=== PATIENT | female | born 1955 | race African-American/Black ===

== ENCOUNTER 2016-11-30 01:35 | Inpatient (IN) | payer BC ==
[~2016-11-30] VITALS: Ht 165.1 cm; Wt 74.0 kg
[2016-11-30] VITALS (8 sets, daily range): BP systolic 125–147; BP diastolic 67–92
[2016-11-30 02:26] LABS: BASOPHILS % 1.2 % (0.0-2.0); EOSINOPHILS % 2.4 % (0.0-5.0); HEMOGLOBIN. 12.5 g/dL (12.0-16.0); LYMPHOCYTES % 47.4 % (20.0-50.0); MEAN CORPUSCULAR HEMOGLOBIN 31.4 pg (28.0-32.0); MEAN CORPUSCULAR VOLUME 92.9 fL (81.0-99.0); MEAN PLATELET VOLUME 8.1 fl (7.4-10.4); MONOCYTES % 6.5 % (2.0-8.0); NEUTROPHILS % 42.5 % (40.0-76.0); PLATELET 189 x1000/uL (130-400); RED BLOOD CELL COUNT 3.98 mill/uL (4.2-5.4); RED CELL DISTRIBUTION WIDTH 12.7 % (11.6-14.6)
[2016-11-30 02:28] LABS: CHLORIDE 105 mEq/L (98-107)
[2016-11-30 02:29] LABS: PROTHROMBIN TIME 10.7 sec (9.4-11.6)
[2016-11-30 02:37] LABS: CARBON DIOXIDE 27 mEq/L (21-32)
[2016-11-30] MEDS ORDERED: SODIUM CHLORIDE 0.9% 1,000 ML IV SCH (02:54)
[2016-11-30] MEDS ORDERED: ASPIRIN 325MG TABLET PO ONE (03:00)
[2016-11-30] MEDS ORDERED: MORPHINE SULFATE 4 MG/ML CPJ (NOT FOR IM USE) IV PRN (06:45)
[2016-11-30] MEDS ORDERED: DOCUSATE SODIUM 100MG CAPSULE PO PRN (06:45)
[2016-11-30] MEDS ORDERED: ACETAMINOPHEN 325MG TABLET PO PRN (06:45)
[2016-11-30] MEDS ORDERED: TRAMADOL 50MG TABLET PO PRN (06:45)
[2016-11-30] MEDS ORDERED: IPRATROPIUM/ALBUTEROL 0.5-3(2.5)MG/3ML NEB INH PRN (06:45)
[2016-11-30] MEDS ORDERED: MAGNESIUM/ALUMINUM HYDROXIDE/SIMETHICONE 30ML UDC PO PRN (06:45)
[2016-11-30] MEDS ORDERED: ONDANSETRON HCL 4MG/2ML VIAL IV PRN (06:45)
[2016-11-30] MEDS ORDERED: CLONIDINE 0.1MG TABLET PO PRN (06:45)
[2016-11-30] MEDS ORDERED: NITROGLYCERIN 0.4MG TABLET SL SL PRN (06:45)
[2016-11-30] MEDS ORDERED: DIPHENHYDRAMINE 50MG/ML VIAL IV PRN (06:45)
[2016-11-30] MEDS ORDERED: GUAIFENESIN 200MG/10ML SUGAR FREE UDC PO PRN (06:45)
[2016-11-30] MEDS ORDERED: NA PHOS,M-B/NA PHOS,DI-BA ENEMA 118ML PR PRN (06:45)
[2016-11-30] MEDS ORDERED: ZOLPIDEM TARTRATE 5MG TABLET PO PRN (06:45)
[2016-11-30] MEDS: ASPIRIN 325MG EC TABLET PO SCH (11:04)
[2016-11-30] MEDS: FAMOTIDINE 20MG/2ML VIAL IV SCH ×2 (11:04→20:32)
[2016-11-30] MEDS: ENOXAPARIN 40MG/0.4ML SYR SUBCUT SCH (11:05)
[2016-11-30 15:53] LABS: CREATINE KINASE 74 IU/L (26-192); CREATINE KINASE MB FRACTION 0.5 ng/mL (0.5-3.6); TROPONIN I < 0.02 ng/mL (0.00-0.04)
[2016-11-30 23:20] LABS: CREATINE KINASE 70 IU/L (26-192); CREATINE KINASE MB FRACTION 0.5 ng/mL (0.5-3.6); TROPONIN I < 0.02 ng/mL (0.00-0.04)
[2016-12-01] VITALS (8 sets, daily range): BP systolic 107–134; BP diastolic 65–86
[2016-12-01] MEDS: FAMOTIDINE 20MG/2ML VIAL IV SCH (09:20)
[2016-12-01] MEDS: ASPIRIN 325MG EC TABLET PO SCH (09:20)
[2016-12-01] MEDS: ENOXAPARIN 40MG/0.4ML SYR SUBCUT SCH (09:20)
[2016-12-01] MEDS ORDERED: INFLUENZA VIRUS VACCINE 0.5ML SYR IM ONE (13:15)
== END 2016-12-01 14:48 | disposition home or self-care (01) | DRG 69 ==
LOC: ER 01:35 → 5EST 02:54 → EDBEDREQTM 03:03 → EDBEDREQ 03:03 → SUPCPDRO 07:09 → ENRESERV 09:01
PROVIDERS: ADMIT Internal Medicine; ATTEND Internal Medicine
DX: G45.9 Transient cerebral ischemic attack, unspecified (principal); I10 Essential (primary) hypertension; E78.00 Pure hypercholesterolemia, unspecified; Z90.710 Acquired absence of both cervix and uterus
CPT/HCPCS: 36415; 70450; 70551; 71010; 80053; 80061; 82550; 82553; 82962; 83036; 84484; 85025; 85610; 90686; 93005; 93306; 93880; 93970; 99285; J1650; J3490; J7030